=== PATIENT | female | born 1990 | race African-American/Black ===

== ENCOUNTER 2017-09-03 23:48 | Emergency (ER) | payer OTHER ==
[~2017-09-03] VITALS: Ht 165.1 cm; Wt 79.4 kg
[2017-09-04] MEDS ORDERED: ACYCLOVIR 400400 MG PO
[2017-09-04 00:27] LABS: URINE BILIRUBIN NEGATIVE (Negative); URINE BLOOD TRACE (Negative); URINE CLARITY CLEAR; URINE COLOR YELLOW; URINE GLUCOSE-RANDOM* NEGATIVE (Negative); URINE KETONES NEGATIVE (Negative); URINE NITRITE-REFLEX NEGATIVE (Negative); URINE PROTEIN (DIPSTICK) TRACE (Negative); URINE SPECIFIC GRAVITY >= 1.030 (1.005-1.035); URINE UROBILINOGEN 0.2 E.U./dl (0.2-1.0)
[2017-09-04 00:30] LABS: HEMOGLOBIN 12.1 gm/dL (12.0-15.0); MCH 25.3 pg (26.0-34.0); MCHC 31.7 g/dL (28.0-37.0); MCV 79.8 fL (80.0-100.0); PLATELET COUNT 180 thou/uL (150-400); RBC 4.76 mil/uL (4.20-5.00); RDW 22.8 % (10.5-14.5); URINE LEUKOCYTES-REFLEX 3+ (Negative); WBC 6.8 thou/uL (4.0-11.0)
[2017-09-04 00:36] LABS: SQUAMOUS 4-10 Moderate /LPF (0-3)
[2017-09-04 00:37] LABS: BACTERIA-REFLEX 1-9 Few /HPF (None Seen); CASTS None Seen /LPF (None Seen); CRYSTALS None Seen /LPF (None Seen); URINE RBC None Seen /HPF (0-2); URINE WBC-REFLEX 6-15 Few /HPF (0-5)
[2017-09-04 00:46] LABS: ABSOLUTE NEUTROPHILS 2.8 thou/uL (1.4-8.2); ANISOCYTOSIS 1+; CALCIUM 9.2 mg/dL (8.5-10.1); CREATININE 0.6 mg/dL (0.6-1.0); PLATELET ESTIMATE NORMAL; POTASSIUM 3.8 mmol/L (3.5-5.1)
[2017-09-04 00:52] LABS: TOTAL BILIRUBIN 0.3 mg/dL (<0.1-1.0); TOTAL PROTEIN 7.6 g/dL (6.4-8.2)
[2017-09-04] MEDS ORDERED: BACTRIM DS TAB1 EACH PO (00:55)
[2017-09-04 01:33] VITALS: BP 140/90
== END 2017-09-04 01:35 | disposition home or self-care (01) ==
LOC: ER 23:48
PROVIDERS: Emergency Medicine
DX: N92.6 Irregular menstruation, unspecified (principal); N39.0 Urinary tract infection, site not specified; R04.2 Hemoptysis